=== PATIENT | male | born 1965 ===

== ENCOUNTER 2023-01-29 10:13 | Day surgery (SDC) | payer OTHER ==
--- NOTE | 2023-01-29 09:09 | P.GSHP ---
History of Present Illness H&P Date: 01/29/23 CHIEF COMPLAINT: Ventral hernia HISTORY OF PRESENT ILLNESS: The patient is a 57-year-old male presents with a history of swelling and pain along the abdomen from a hernia of the abdomen after lifting a patient at work. Symptoms have been present for over 2 months. Now he presents for surgical intervention. PAST MEDICAL HISTORY: Please see list. PAST SURGICAL HISTORY: Please see list. MEDICATIONS: Please see list. ALLERGIES: Please see list. SOCIAL HISTORY: No illicit drug use FAMILY HISTORY: No reports of Crohn disease or ulcerative colitis. REVIEW OF ORGAN SYSTEMS: CONSTITUTIONAL: No reports of fevers or chills. No reports of weight loss despite prior attempts. GI: Denies any blood in stools or constipation. PHYSICAL EXAM: VITAL SIGNS: Stable GENERAL: Well-developed pleasant male in no acute distress. HEENT: No scleral icterus. Extraocular movements grossly intact. Moist buccal mucosa. NECK: Supple without lymphadenopathy. CHEST: Unlabored respirations. Equal bilateral excursions. CARDIOVASCULAR: Regular rate and rhythm. Distal 2+ pulses. ABDOMEN: Soft, nondistended. Palpable defect of the abdomen. No peritoneal signs. MUSCULOSKELETAL: No clubbing, cyanosis, or edema. ASSESSMENT: 1. Ventral hernia, traumatic PLAN: 1. Recommend proceeding with robotic ventral hernia repair with mesh. 2. Benefits and risks of surgical intervention was discussed including possibility of open technique. 3. DVT prophylaxis. 4. Antibiotic prophylaxis. 5. Non narcotic pain management including abdominal wall block described 6. Blood sugar glucose described. 7. Weight loss management described. Past Medical History Past Medical History: GERD/Reflux, Hyperlipidemia Additional Past Medical History / Comment(s): ventral hernia pain on and off, rosacea on face, seasonal allergies History of Any Multi-Drug Resistant Organisms: None Reported Past Surgical History: Appendectomy, Orthopedic Surgery Additional Past Surgical History / Comment(s): colonoscopies, acl and meniscus rt knee. urinary pelvic junction repair, mcl strain . Past Anesthesia/Blood Transfusion Reactions: Postoperative Nausea & Vomiting (PONV) Smoking Status: Never smoker - Past Family History Mother Family Medical History: AFIB, Cancer, Coronary Artery Disease (CAD), Hypertension Additional Family Medical History / Comment(s): lymphoma Father Family Medical History: Cancer Additional Family Medical History / Comment(s): lung cancer, Medications and Allergies Home Medications Medication Instructions Recorded Confirmed Type Aspirin 81 mg PO DAILY 01/28/23 01/28/23 History Ergocalciferol [Vitamin D2 (1250 1,250 mcg PO WEEKLY 01/28/23 01/28/23 History Mcg = 26433 Iu)] Naproxen 250 mg PO DIRECTED PRN 01/28/23 01/28/23 History Simvastatin [Zocor] 20 mg PO HS 01/28/23 01/28/23 History Unk Multi Vitamin 1 tab PO DAILY 01/28/23 01/28/23 History Unk Otc Allergy Med 1 tab PO DAILY PRN 01/28/23 01/28/23 History Allergies Allergy/AdvReac Type Severity Reaction Status Date / Time Iodinated Contrast Media Allergy Rash/Hives Verified 01/28/23 09:54 meperidine [From Demerol] AdvReac Severe Nausea & Verified 01/28/23 09:54 Vomiting
[~2023-01-29 10:13] MED LIST: ACETAMINOPHEN TAB 500 MG TAB PO PRN; GABAPENTIN 300 MG CAP PO STA; HEPARIN SODIUM,PORCINE/PF 5,000 UNIT/0.5 ML SYRINGE SQ PRN; MELOXICAM 7.5 MG TAB PO SCH; ONDANSETRON 4 MG/2 ML VIAL IVP PRN; TAMSULOSIN 0.4 MG CAP.ER.24H PO STA
[2023-01-29] MEDS ORDERED: LACTATED RINGERS 1,000 ML IV ONE ×2 (10:37→13:53)
[2023-01-29 11:02] LABS: Glucose,Whole Blood 109 mg/dL (70-110)
[2023-01-29] MEDS ORDERED: MIDAZOLAM 2 MG/2 ML VIAL IVP ONE (11:10)
[2023-01-29 11:23] LABS: Basophils % (A) 0 %; Eosinophils # (A) 0.1 k/uL (0-0.7); Eosinophils % (A) 1 %; HCT 49.4 % (39.0-53.0); HGB 16.2 gm/dL (13.0-17.5); Lymphocytes # (A) 1.5 k/uL (1.0-4.8); Lymphocytes % (A) 22 %; MCH 29.2 pg (25.0-35.0); MCHC 32.7 g/dL (31.0-37.0); MCV 89.2 fL (80.0-100.0); Mean Platelet Volume 6.9; Monocytes # (A) 0.5 k/uL (0-1.0); Monocytes % (A) 8 %; Neutrophils # (A) 4.5 k/uL (1.3-7.7); Neutrophils % (A) 66 %; Platelet Count 242 k/uL (150-450); RBC 5.54 m/uL (4.30-5.90); RDW 12.5 % (11.5-15.5); WBC 6.8 k/uL (3.8-10.6)
[2023-01-29] MEDS ORDERED: DEXAMETHASONE SOD PHOSPHATE 4 MG/ML 1 ML VIAL PO ONE (11:24)
[2023-01-29 11:38] LABS: ALT 26 U/L (4-49); AST 30 U/L (17-59); African American GFR (CKD) >90 (>60 ml/min/1.73 sqM); Albumin 4.6 g/dL (3.5-5.0); Alkaline Phosphatase 71 U/L (38-126); Anion Gap 12 mmol/L; Blood Urea Nitrogen 19 mg/dL (9-20); Calcium 9.8 mg/dL (8.4-10.2); Carbon Dioxide 24 mmol/L (22-30); Chloride 106 mmol/L (98-107); Glucose 100 mg/dL (74-99); Non-African American GFR(CKD) 87 (>60 ml/min/1.73 sqM); Sodium 142 mmol/L (137-145); Total Bilirubin 0.7 mg/dL (0.2-1.3); Total Protein 7.5 g/dL (6.3-8.2)
[2023-01-29 11:39] LABS: Potassium 4.4 mmol/L (3.5-5.1)
[2023-01-29] MEDS ORDERED: NEOSTIGMINE 1 MG/ML 10 ML VIAL ONE (12:09)
[2023-01-29] MEDS ORDERED: fentaNYL (PF) 50 MCG/ML 2 ML AMP ONE (12:09)
[2023-01-29] MEDS ORDERED: GLYCOPYRROLATE 0.2 MG/ML 2 ML VIAL ONE (12:09)
[2023-01-29] MEDS ORDERED: ROCURONIUM 10 MG/ML (5 ML VIAL) IV ONE (12:09)
[2023-01-29] MEDS ORDERED: ROPIVACAINE 5 MG/ML 30 ML VIAL ONE (12:09)
[2023-01-29] MEDS ORDERED: LIDOCAINE 2% INJ 20 MG/ML (2 ML VIAL) ONE (12:09)
[2023-01-29] MEDS ORDERED: PHENYLEPHRINE-0.9% NACL SYG 1,000 MCG/10 ML SYRINGE ONE (12:09)
[2023-01-29] MEDS ORDERED: SUCCINYLCHOLINE CHLORIDE 200 MG/10 ML VIAL IV ONE (12:09)
[2023-01-29] MEDS ORDERED: HYDROmorphone (PF) 1 MG/ML ONE (12:09)
[2023-01-29] MEDS ORDERED: PROPOFOL 10 MG/ML 20 ML VIAL IV ONE (12:09)
[2023-01-29] MEDS ORDERED: DEXAMETHASONE SOD PHOSPHATE 4 MG/ML 1 ML VIAL ONE (12:09)
[2023-01-29] MEDS ORDERED: BUPIVACAINE (PF) 0.25% 30 ML VIAL SQ ONE (12:56)
[2023-01-29 14:15] VITALS: RESP 16; TEMP 96.8
[2023-01-29] MEDS ORDERED: HYDROmorphone 0.5 MG/0.5 ML SYRINGE IVP ONE ×4 (14:32→14:57)
[2023-01-29] MEDS ORDERED: ONDANSETRON 4 MG/2 ML VIAL IVP ONE (14:38)
--- NOTE | 2023-01-29 14:53 | P.OP ---
Date of Procedure: 01/29/23 Description of Procedure: SURGEON: TOMASA DORMAN MD PREOPERATIVE DIAGNOSES: 1. Initial epigastric ventral hernia with incarceration, traumatic 2. Initial incarcerated umbilical hernia POSTOPERATIVE DIAGNOSES: 1. Initial epigastric ventral hernia with incarceration 2. Initial incarcerated umbilical hernia OPERATION: 1. Robotic-assisted da Felix Xi laparoscopic repair of initial incarcerated epigastric ventral hernia with mesh, ventralight ST mesh 11.4 cm 2. Robotic-assisted da Felix Xi laparoscopic repair of initial incarcerated umbilical hernia with mesh, ventralight ST mesh 11.4 cm Anesthesia: GETA, regional, local Estimated Blood Loss (ml): 5 Pathology: Incarcerated ventral hernia defect COMPLICATIONS: None. Operative Findings: 1. Upper midline epigastric ventral hernia defect 2 x 3 cm 2. Umbilical hernia defect 1 x 1 cm 3. Fascia repaired using #1 V-lock suture INDICATIONS: The patient is a 57-year-old male who presents with a personal history of multiple abdominal wall hernias with work injury related traumatic epigastric ventral hernia. Surgical intervention with laparoscopic versus robotic and open techniques were reviewed. Placement of mesh was also reviewed. Benefits and risks were thoroughly described. Informed consent was obtained. DESCRIPTION OF PROCEDURE: The patient was brought into the operating room and laid in supine position. After general induction, the abdomen had been prepped and draped in standard sterile fashion. Ioban draping was also placed. Prior to incision, a timeout protocol was confirmed with surgical team regarding the patient's name including procedures to be performed. The robot was primed prior to the procedure. A field block using local anesthetic was placed along hernia site including the proposed port sites. Initial incision was made with an #11 blade along the left upper quadrant. A 0 degree 5 mm laparoscopic trocar entry was performed and insufflated. Three 8 mm ports were placed along the right lateral abdominal wall under direct localization after exchanging the 5-mm for an 8 mm port. Placements of the ports were 15 cm from the target anatomy and 10 cm apart. An accessory 12 mm port was placed at the left upper quadrant for exchange of mesh including sutures. The [employer] Xi robot was previously primed, prepped and draped then docked from the right side of the patient onto the left side of the patient. I then sat at the robot [employer] console where working arms of the robot including Bovie cautery connected to robotic scissors, needle coach driver, and graspers placed by the bilingual executive assistant. Incarcerated omental contents were found along the upper midline defect includin g umbilicus. The defects were reduced with preperitoneal fat including the falciform ligament at the upper midline defect. Two distinct fascial defects were found: Upper midline defect 3 x 3 cm and umbilical hernia defect 1 x 1 cm. The incarcerated contents were reduced as the peritoneal fat was cleaned from the abdominal wall. Next, hemostasis was checked with cautery. The hernia defects were oversewn using #1 nonabsorbable V-lock suture for each defect separately with fascial imbrication x 2. Next, ventralight ST mesh 11.4 cm was placed with the rough side towards the abdominal wall as to cover the epigastric including umbilical defect. 2-0 VLOC 9 inch sutures were used to fixate the mesh. A final endoscopic imaging was obtained. All instruments and pneumoperitoneum were evacuated from the abdominal cavity. The da Felix Xi robot was undocked from the patient. I re-scrubbed into the case for closure of incisions. The fascia of the 12-mm port was probed was closed using 0 Vicryl in Loc [place]. The incisions were reapproximated using 4-0 Monocryl in an interrupted subcuticular fashion. Liquid glue was applied to the skin after cleansing the skin with normal saline and dilute hydrogen peroxide. An abdominal binder was placed. An umbilical dressing was placed prior. At the end of the procedure, needle, sponge, and instrument count had been verified correct by ophthalmology surgical technician. The patient was taken to the postanesthesia care unit in stable condition. Plan - Discharge Summary Discharge Rx Participant: Yes New Discharge Prescriptions: New Cyclobenzaprine [Flexeril] 10 mg PO TID #30 tab Ibuprofen [Motrin] 600 mg PO Q8HR PRN #30 tab PRN Reason: Pain Acetaminophen Tab [Tylenol Tab] 1,000 mg PO Q6HR PRN #30 tablet PRN Reason: Pain Continue Naproxen 250 mg PO DIRECTED PRN PRN Reason: Pain Ergocalciferol [Vitamin D2 (1250 Mcg = 17999 Iu)] 1,250 mcg PO WEEKLY Aspirin 81 mg PO DAILY Unk Otc Allergy Med 1 tab PO DAILY PRN PRN Reason: Allergy Symptoms Simvastatin [Zocor] 20 mg PO HS Unk Multi Vitamin 1 tab PO DAILY Discharge Medication List Aspirin 81 mg PO DAILY 01/28/23 [History] Ergocalciferol [Vitamin D2 (1250 Mcg = 93613 Iu)] 1,250 mcg PO WEEKLY 01/28/23 [History] Naproxen 250 mg PO DIRECTED PRN 01/28/23 [History] Simvastatin [Zocor] 20 mg PO HS 01/28/23 [History] Unk Multi Vitamin 1 tab PO DAILY 01/28/23 [History] Unk Otc Allergy Med 1 tab PO DAILY PRN 01/28/23 [History] Acetaminophen Tab [Tylenol Tab] 1,000 mg PO Q6HR PRN #30 tablet 01/29/23 [Rx] Cyclobenzaprine [Flexeril] 10 mg PO TID #30 tab 01/29/23 [Rx] Ibuprofen [Motrin] 600 mg PO Q8HR PRN #30 tab 01/29/23 [Rx] Follow up Appointment(s)/Referral(s): Tomasa Dorman MD [STAFF PHYSICIAN] - 02/03/23 ([facility]LE[facility], CALLS YOU AT HOME) Patient Instructions/Handouts: *Surgery [facility] - Managing Your Pain After Surgery Without Opioids, Laparoscopic Herniorrhaphy (DC), Abdominal Binder (DC), Ventral Hernia Repair (GEN) Activity/Diet/Wound Care/Special Instructions: Using antibacterial soap. No lifting over 4 pounds 4 weeks, March 01January shower. No bathtub soaks for 2 weeks, February 12 Wear abdominal binder daily for comfort except for showering. Use ice along incisions for today to prevent swelling. Take tylenol, aleve/ibuprofen, simethicone scheduled for 3 days for best pain relief Discharge Disposition: HOME SELF-CARE
[2023-01-29] MEDS ORDERED: TAMSULOSIN 0.4 MG CAP.ER.24H PO STA (17:38)
--- NOTE | 2023-01-29 17:39 | P.PN ---
Progress Note - Text Progress Note Date: 01/29/23 Patient having trouble urinating. Additionally, patient consented about pain control at home. Patient offered to stay overnight for pre-existing history of urinary retention and pain management. Additional Flomax dose given.
[2023-01-29] MEDS ORDERED: TAMSULOSIN 0.4 MG CAP.ER.24H PO ONE (17:48)
[2023-01-29 19:16] VITALS: BP 111/70; PULSE 75
--- NOTE | 2023-01-30 10:34 | P.ANPRN ---
Procedure Note - Anesthesia - Nerve Block Performed Bilateral Transversus Abdominis Single Time Out Performed: Yes Date of Procedure: 01/29/23 Procedure Start Time: : Procedure Stop Time: :15 Location of Patient: PreOp Indication: Acute Post-Operative Pain, Requested by Surgeon Sedation Type: Sedate with meaningful contact maintained Preparation: Sterile Prep Position: Supine Needle Types: Pajunk Needle Gauge: 21 Ultrasound used to visualize needle placement: Yes Ultrasound used to observe medication spread: Yes Blood Aspirated: No Pain Paresthesia on Injection Noted: No Resistance on Injection: Normal Image Stored and Saved: Yes Events: Uneventful and Well Tolerated (Ropivacaine 0.5% 20 mL plus dexamethasone 4 mg given bilaterally)
== END 2023-01-29 19:24 | disposition home or self-care (01) ==
LOC: OR 10:13
PROVIDERS: ATTEND Surgery Plastic and Reconstructive Surgery
DX: K43.6 Other and unspecified ventral hernia with obstruction, without gangrene (principal); K42.0 Umbilical hernia with obstruction, without gangrene; G89.18 Other acute postprocedural pain; E78.5 Hyperlipidemia, unspecified; K21.9 Gastro-esophageal reflux disease without esophagitis; Z90.49 Acquired absence of other specified parts of digestive tract; Z98.890 Other specified postprocedural states; Z82.49 Family history of ischemic heart disease and other diseases of the circulatory system; Z80.1 Family history of malignant neoplasm of trachea, bronchus and lung; Z79.82 Long term (current) use of aspirin; Z88.5 Allergy status to narcotic agent; Z79.899 Other long term (current) drug therapy
CPT/HCPCS: 64488; 80053; 85025; 49594; C1781; J2250; J0330; J1100; J2710; J2405; J3010; J1170 ×2; J2795; J2370; J2704; J1644; J2001; 88302